=== PATIENT | female | born 1960 | race African-American/Black ===

== ENCOUNTER 2020-05-02 10:02 | Emergency (ER) | payer OTHER ==
[~2020-05-02] VITALS: Ht 165.1 cm; Wt 102.1 kg
[2020-05-02 10:53] LABS: ABSOLUTE NEUTROPHILS 4.6 thou/uL (1.4-8.2); BASOPHILS 1.3 % (0.0-2.0); EOSINOPHILS 4.3 % (0.0-3.0); HEMATOCRIT 41.6 % (37.0-47.0); HEMOGLOBIN 13.6 gm/dL (12.0-15.0); LYMPHOCYTES 15.7 % (24.0-44.0); MCH 25.5 pg (26.0-34.0); MCHC 32.6 g/dL (28.0-37.0); MCV 78.3 fL (80.0-100.0); MONOCYTES 5.4 % (1.0-8.0); PLATELET COUNT 237 thou/uL (150-400); POLYS 73.3 % (36.0-66.0); RBC 5.32 mil/uL (4.20-5.00); RDW 14.4 % (10.5-14.5); WBC 6.2 thou/uL (4.0-11.0)
[2020-05-02 11:09] LABS: ALBUMIN 3.9 g/dL (3.4-5.0); ANION GAP 7 mmol/L (7-16); BUN 19 mg/dL (7-18); CHLORIDE 97 mmol/L (98-107); CO2 30 mmol/L (21-32); CREATININE 1.3 mg/dL (0.6-1.0); POTASSIUM 3.7 mmol/L (3.5-5.1); SGOT 15 U/L (15-37); SGPT 26 U/L (30-65); SODIUM 134 mmol/L (136-145); TOTAL BILIRUBIN 0.5 mg/dL (0.2-1.0); TOTAL PROTEIN 8.5 g/dL (6.4-8.2); TROPONIN-I <0.06 ng/mL (<0.06)
[2020-05-02 11:12] LABS: GLUCOSE 549 mg/dL (74-106)
[2020-05-02] MEDS ORDERED: GLIPIZIDE ER5 MG PO (13:03)
[2020-05-02 13:41] VITALS: BP 149/84
--- NOTE | 2020-05-04 13:37 | EKG ---
[address] [place] [address] ELECTROCARDIOGRAM REPORT Name: MARGARITA BAR Room #: DEP [facility] [id number] Admission: 05/02/20 Attend Phys: Discharge: 05/02/20 Date of : 56 Report #: [id number] [facility] ED Test Date: 2020-05-02 Test Time: 11:04:10 Pat Name: MARGARITA BAR Department: Room: Gender: F Tracer Clerk: JCHAIRUBINA : 1960 Requested By: Pk Chin Order Number: [id number] MD: Benji Palacios Measurements Intervals [place] Rate: 97 P: 28 MI: 203 QRS: -20 QRSD: 85 T: 50 QT: 349 QTc: 444 Interpretive Statements Sinus rhythm Poor R wave progression No previous ECG available for comparison Electronically Signed On 05-04-2020 13:37:06 UNIT TENDER by Benji Palacios [email or web address] <ELECTRONICALLY SIGNED> By: Benji Palacios MD, MERGED WITH [facility] 05/04/20 1337 1104 1104 Benji Palacios MD, FACC /EPI
== END 2020-05-02 13:41 | disposition home or self-care (01) ==
LOC: ER 10:02
PROVIDERS: Emergency Medicine
DX: E11.65 Type 2 diabetes mellitus with hyperglycemia (principal); I10 Essential (primary) hypertension; E78.5 Hyperlipidemia, unspecified; Z90.710 Acquired absence of both cervix and uterus